=== PATIENT | male | born 1995 | race Two or more races ===

== ENCOUNTER 2017-07-17 19:17 | Emergency (ER) | payer SELFPAY ==
[~2017-07-17] VITALS: Ht 188 cm; Wt 84.7 kg
[2017-07-17] MEDS ORDERED: PERCOCET 5/31 TABLET PO (19:55)
[2017-07-17 20:28] VITALS: BP 134/66
== END 2017-07-17 20:28 | disposition home or self-care (01) ==
LOC: EME 19:17
PROC: 2W3DX1Z Immobilization of Left Lower Arm using Splint (ICD-10-PCS; principal; 2017-07-17)
DX: S62.512A Displaced fracture of proximal phalanx of left thumb, initial encounter for closed fracture (principal); W18.30XA Fall on same level, unspecified, initial encounter; F17.200 Nicotine dependence, unspecified, uncomplicated
CPT/HCPCS: 73130; 99281; 99284

== ENCOUNTER 2017-08-11 10:21 | Emergency (ER) | payer SELFPAY ==
[~2017-08-11] VITALS: Ht 188 cm; Wt 80.5 kg
[~2017-08-11 10:21] MED LIST: PERCOCET 5/31 TABLET PO
[2017-08-11] MEDS ORDERED: MOTRIN600 MG PO (10:47)
[2017-08-11 11:16] VITALS: BP 105/58
== END 2017-08-11 11:31 | disposition home or self-care (01) ==
LOC: EME 10:21
PROC: 2W3DX1Z Immobilization of Left Lower Arm using Splint (ICD-10-PCS; principal; 2017-08-11)
DX: S62.202A Unspecified fracture of first metacarpal bone, left hand, initial encounter for closed fracture (principal); F17.200 Nicotine dependence, unspecified, uncomplicated
CPT/HCPCS: 99281; 99283

== ENCOUNTER 2017-09-18 03:49 | Emergency (ER) | payer SELFPAY ==
[~2017-09-18] VITALS: Ht 190.5 cm; Wt 78.4 kg
[~2017-09-18 03:49] MED LIST changes: +MOTRIN600 MG PO
[2017-09-18 03:51] VITALS: BP 124/80
== END 2017-09-18 05:30 | disposition left against medical advice (07) ==
LOC: EME 03:49
DX: M79.675 Pain in left toe(s) (principal); R23.8 Other skin changes; F41.9 Anxiety disorder, unspecified; Z53.21 Procedure and treatment not carried out due to patient leaving prior to being seen by health care provider

== ENCOUNTER 2017-09-20 00:27 | Emergency (ER) | payer SELFPAY ==
[~2017-09-20] VITALS: Ht 188 cm; Wt 77.9 kg
[2017-09-20] MEDS ORDERED: ATARAX,VISTARIL25 MG PO (01:29)
[2017-09-20 01:33] VITALS: BP 137/76
== END 2017-09-20 01:33 | disposition home or self-care (01) ==
LOC: EME 00:27
DX: F41.1 Generalized anxiety disorder (principal); S93.505A Unspecified sprain of left lesser toe(s), initial encounter; X50.1XXA Overexertion from prolonged static or awkward postures, initial encounter; F17.200 Nicotine dependence, unspecified, uncomplicated
CPT/HCPCS: 90839; 99281; 99285; Q0177